=== PATIENT | female | born 1965 | race Caucasian/White ===

== ENCOUNTER 2019-09-11 14:48 | Emergency (ER) | payer OTHER ==
[~2019-09-11] VITALS: Ht 162.6 cm; Wt 90.9 kg
[2019-09-11 15:02] VITALS: BP 143/66
--- NOTE | 2019-09-11 15:08 | PHYS DOC ---
Past History Past Medical History: High Cholesterol, Hypertension, Hypothyroid Past Surgical History: Other Additional Past Surgical Histo: hernia sx; implant in right brest for asymmetry Alcohol Use: None Adult General Chief Complaint Chief Complaint: RIB PAIN HPI HPI Patient is a 54-year-old female who presents secondary to left anterolateral rib pain that has been present 2 days and is worse with palpation, movement, breathing. States she has been coughing some recently but no fever or chills. No medications taken prior to arrival. Her pain is moderate in severity. She has no shortness of breath. Review of Systems Review of Systems All other ROS is negative unless otherwise stated in HPI Allergies Allergies Allergies Coded Allergies Type Severity Reaction Last Updated Verified No Known Drug Allergies 09/11/19 No Physical Exam Physical Exam See above Constitutional: Well developed, well nourished, no acute distress, non-toxic appearance. [] HENT: Normocephalic, atraumatic, bilateral external ears normal, oropharynx moist, no oral exudates, nose normal. [] Eyes: PERRLA, EOMI, conjunctiva normal, no discharge. [] Neck: Normal range of motion, no tenderness, supple, no stridor. [] Cardiovascular:Heart rate regular rhythm, no murmur [] Lungs & Thorax: Bilateral breath sounds clear to auscultation there is moderate tenderness to palpation underneath the left breast on the anterolateral ribs inferior aspect. Abdomen: Bowel sounds normal, soft, no tenderness, no masses, no pulsatile masses. [] Skin: Warm, dry, no erythema, no rash. [] Back: No tenderness, no CVA tenderness. [] Extremities: No tenderness, no cyanosis, no clubbing, ROM intact, no edema. [] Neurologic: Alert and oriented X 3, normal motor function, normal sensory function, no focal deficits noted. [] Psychologic: Affect normal, judgement normal, mood normal. [] Current Patient Data Vital Signs Vital Signs Date Time Temp Pulse Resp B/P (MAP) Pulse Ox O2 Delivery O2 Flow Rate FiO2 09/11/19 15:02 97.9 71 18 143/66 (91) 98 EKG EKG [] Radiology/Procedures Radiology/Procedures CXR negative per ED interpretation.[] Course & Med Decision Making Course & Med Decision Making Pertinent Labs and Imaging studies reviewed. (See chart for details) Patient seen for left rib pain. Examination consistent with muscular skeletal pain. We'll get an x-ray to rule out pulmonary process and discharged home with medications if negative. Dragon Disclaimer Dragon Disclaimer This electronic medical record was generated, in whole or in part, using a voice recognition dictation system. Departure Departure: Impression: Primary Impression: Left-sided chest wall pain Disposition: HOME, SELF-CARE Condition: STABLE Referrals: REYNA LOPEZ MD (PCP) Follow up in 3-5 days if not improving. Patient Instructions: Chest Wall Pain Scripts Prednisone (PREDNISONE) 50 Mg Tablet 50 MG PO DAILY for Chest Wall Pain for 5 Days, #5 TAB 0 Refills Prov: ESPINOZA RIVERS DO 09/11/19 Diclofenac Sodium (DICLOFENAC SODIUM) 75 Mg Tablet.dr 1 TAB PO BID for Chest Wall Pain for 10 Days, #20 TAB 0 Refills Prov: ESPINOZA RIVERS DO 09/11/19 ESPINOZA RIVERS DO Sep 11, 2019 15:08
[2019-09-11] MEDS ORDERED: DICL75TA PO (15:55)
[2019-09-11] MEDS ORDERED: PRED50TA PO (15:55)
--- NOTE | 2019-09-11 16:40 | RAD ---
CHEST PA LATERAL Clinical indications: Left anterolateral rib pain. COMPARISON: None available. Findings: No acute lung infiltrate or pleural effusion or pulmonary edema or lung mass or pneumothorax is seen. The heart size, pulmonary vasculature, mediastinum and both tomasz are unremarkable. The osseous structures appear intact. Impression: No acute radiographic abnormality is seen. Electronically signed by: Francesco Jackson MD (09/11/2019 4:38 PM) [id number]
== END 2019-09-11 16:00 | disposition home or self-care (01) ==
LOC: ER 14:48
DX: R07.89 Other chest pain (principal); I10 Essential (primary) hypertension; E03.9 Hypothyroidism, unspecified; E78.5 Hyperlipidemia, unspecified
CPT/HCPCS: 71046; 99284